=== PATIENT | female | born 1970 | race Two or more races ===

== ENCOUNTER 2019-10-13 12:41 | Emergency (ER) | payer BC ==
[~2019-10-13] VITALS: Ht 165.1 cm; Wt 57.2 kg
[2019-10-13] MEDS ORDERED: SYNTHROID88 MCG ORAL (12:55)
[2019-10-13 12:58] VITALS: BP 116/72
--- NOTE | 2019-10-13 13:05 | NUR ---
ED Nurse Note: Patient walked into ER from home c/o right upper abdominal pain radiates to her back on the right side X 2 days. Patient reports BM this morning, denies diarrhea or vomiting, but admits to nausea. Patient reports Dr. Thompson referred patient to ED for evaluation. Patient presented calm, AAO x4, VSS at this time.
--- NOTE | 2019-10-13 13:26 | Emergency Room Report ---
History of Present Illness General Chief Complaint: Abdominal Pain Source: Patient Present Illness HPI Disclaimer: Please note that this report is being documented using [employer] technology. This can lead to erroneous entry secondary to incorrect interpretation by the dictating instrument. HPI: 41-year-old female with history of gallstones and hypothyroidism presents for evaluation of abdominal pain. Symptoms began 2 days ago. She notes epigastric right upper quadrant pain rating to the back after eating some nuts 2 days ago. Denies vomiting but report significant nausea. Denies diarrhea. She was told she had gallstones in the past but were treated nonoperatively. Otherwise denies fever, chills, chest pain, shortness of breath, URI symptoms, rash or skin breakdown. Has not taken any medication prior to arrival. Patient is postmenopausal. Denies dysuria, hematuria. PMH: Hypothyroidism, history of gallstones PSH: Denies Allergies: Denies Social Hx: Denies alcohol, tobacco or drug use Allergies: Coded Allergies: No Known Allergies (Unverified , 10/13/19) COVID-19 Screening Contact w/high risk pt: No Experienced COVID-19 symptoms?: No COVID-19 Testing performed MANAGER ANALYSIS: Yes COVID-19 Screening: Negative COVID-19 COVID-19 Testing Source: nose Patient History Last Menstrual Period: menopause Now: No Nursing Documentation-PMH Past Medical History: No History, Except For Review of Systems All Other Systems: negative except mentioned in HPI Physical Exam Vital Signs Date Time Temp Pulse Resp B/P (MAP) Pulse Ox O2 Delivery O2 Flow Rate FiO2 10/13/19 12:48 98.4 91 17 116/72 (87) 97 Room Air General: Awake and alert, no acute distress HEENT: NC/AT. EOMI. Cardiovascular: RRR. S1 and S2 normal. No murmur appreciated Resp: Normal work of breathing. No cough, wheezing or crackles appreciated Abdomen: Abdomen is soft, nondistended. Tenderness palpation in the periumbilical area, epigastrium and right upper quadrant with positive Toledo's sign. No tenderness in the right lower quadrant, no rebound. No masses appreciated. Skin: Intact. No abrasions, laceration or rash over the exposed skin MSK: Normal tone and bulk. Moving all extremities. No obvious deformity. Neuro: Awake and alert. Mentating appropriately. Medical Decision Making Diagnostic Impression: Primary Impression: Biliary colic Additional Impressions: Gallstones UTI (urinary tract infection) Vomiting ER Course 49-year-old female with a history of gallstones presents for evaluation 2 days worsening epigastric pain and nausea. Greatest concern for cholecystitis, choledocholithiasis however gastritis, gastroenteritis, pancreatitis, appendicitis, bowel obstruction, current also on differential. Will obtain IV access, provide antiemetics, pain medication, IV fluids, broad labs ordered. Patient be kept n.p.o. and sent for ultrasound of the abdomen. Will advance work-up as needed. 1430: Ultrasound shows gallstones but no evidence of acute cholecystitis. CBC, chemistry, liver function studies are within normal limits. Urinalysis concerning for acute urinary tract infection. Patient received Zofran in the ED and will be discharged on Keflex. She remains in pain but declined admission at this time stating that she wants to return to work. She has been told about her gallstones in the past but does not want surgical intervention at this time fearing she would miss work. I believe this is reasonable as long as her symptoms can be managed. She will receive additional IV fluids and pain medication and be reevaluated. If improved she may be discharged with outpatient follow-up otherwise can admit. 1500: Patient improved. She declined admission at this time stated she wants to follow-up on an outpatient basis with her PMD. She does not want surgical intervention or evaluation by a surgeon at this time though I did offer. She is well-appearing and stable for outpatient follow-up. We discussed reasons to return to the emergency department. She understands and agrees with this treatment plan. Laboratory Tests Test 10/13/19 13:31 White Blood Count 5.1 K/UL (4.8-10.8) Red Blood Count 4.52 M/UL (4.20-5.40) Hemoglobin 13.2 G/DL (12.0-16.0) Hematocrit 40.0 % (37.0-47.0) Mean Corpuscular Volume 89 FL (80-99) Mean Corpuscular Hemoglobin 29.2 PG (27.0-31.0) Mean Corpuscular Hemoglobin Concent 33.0 G/DL (32.0-36.0) Red Cell Distribution Width 11.9 % (11.6-14.8) Platelet Count 313 K/UL (150-450) Mean Platelet Volume 7.3 FL (6.5-10.1) Neutrophils (%) (Auto) 54.6 % (45.0-75.0) Lymphocytes (%) (Auto) 36.3 % (20.0-45.0) Monocytes (%) (Auto) 7.2 % (1.0-10.0) Eosinophils (%) (Auto) 0.6 % (0.0-3.0) Basophils (%) (Auto) 1.2 % (0.0-2.0) Urine Color Pale yellow Urine Appearance Clear Urine pH 8 (4.5-8.0) Urine Specific [place] 1.010 (1.005-1.035) Urine Protein Negative (NEGATIVE) Urine Glucose (UA) Negative (NEGATIVE) Urine Ketones Negative (NEGATIVE) Urine Blood Negative (NEGATIVE) Urine Nitrite Negative (NEGATIVE) Urine Bilirubin Negative (NEGATIVE) Urine Urobilinogen Normal MG/DL (0.0-1.0) Urine Leukocyte Esterase 3+ (NEGATIVE) H Urine RBC 0-2 /HPF (0 - 2) Urine WBC 5-10 /HPF (0 - 2) H Urine Squamous Epithelial Cells Few /LPF (NONE/OCC) Urine Amorphous Sediment Moderate /LPF (NONE) H Urine Bacteria Few /HPF (NONE) Sodium Level 143 MMOL/L (136-145) Potassium Level 3.6 MMOL/L (3.5-5.1) Chloride Level 104 MMOL/L (98-107) Carbon Dioxide Level 30 MMOL/L (21-32) Anion Gap 10 mmol/L (5-15) Blood Urea Nitrogen 14 mg/dL (7-18) Creatinine 1.0 MG/DL (0.55-1.30) Estimated Glomerular Filtration Rate 58.9 mL/min (>60) Glucose Level 100 MG/DL (74-106) Calcium Level 8.9 MG/DL (8.5-10.1) Total Bilirubin 0.4 MG/DL (0.2-1.0) Aspartate Amino Transferase (AST) 25 U/L (15-37) Alanine Aminotransferase (ALT) 29 U/L (12-78) Alkaline Phosphatase 89 U/L (46-116) Total Protein 7.5 G/DL (6.4-8.2) Albumin 4.1 G/DL (3.4-5.0) Globulin 3.4 g/dL Albumin/Globulin Ratio 1.2 (1.0-2.7) Lipase 326 U/L (73-393) CT/MRI/US Diagnostic Results CT/MRI/US Diagnostic Results : Impression Procedure: US ABD Complete Indication: Abdominal pain Technique: Monge-scale and duplex images of the upper abdomen were obtained Comparison: none Findings: Gallbladder demonstrates gallstones. No gallbladder wall thickening nor pericholecystic fluid Sonographic Toledo's sign is is equivocal. Common bile duct measures for mm in diameter. No intrahepatic biliary ductal dilatation. Liver demonstrates normal echogenicity, no focal abnormality. Portal vein and hepatic veins are patent. Pancreas is unremarkable. Spleen is unremarkable. Left kidney measures 9.6 cm in length. Right kidney measures 10.3 cm length. Both kidneys demonstrate normal echogenicity. There is no hydronephrosis. No focal abnormality . Non-aneurysmal abdominal aorta . Impression: Cholelithiasis. Negative for dilated bile ducts. Equivocal sonographic Toledo's sign is nonspecific. Hepatobiliary nuclear scan may be useful if there is high clinical suspicion for acute cholecystitis No other significant abnormality Dictated By: Cash Gregory MD Electronically Signed By: Cash Gregory MD Signed Date/Time 10/13/19 1422 CC: Joseluis Mcguire MD Last Vital Signs Date Time Temp Pulse Resp B/P (MAP) Pulse Ox O2 Delivery O2 Flow Rate FiO2 10/13/19 12:58 91 17 Room Air 10/13/19 12:58 98.4 116/72 97 Disposition: HOME, SELF-CARE Condition: Stable Scripts Hydrocodone Bit/Acetaminophen 5-325* (NORCO 5-325 TABLET*) 1 Each Tablet 1 TAB ORAL Q6H PRN for FOR PAIN, #10 TAB 0 Refills Prov: Joseluis Mcguire MD 10/13/19 Cephalexin* (KEFLEX*) 500 Mg Capsule 500 MG ORAL EVERY 12 HOURS for 7 Days, #14 CAP 0 Refills Prov: Joseluis Mcguire MD 10/13/19 Ondansetron Odt* (ZOFRAN ODT*) 4 Mg Tab.rapdis 4 MG BC EVERY 6 HOURS PRN for Nausea & Vomiting, #20 TAB 0 Refills Prov: Joseluis Mcguire MD 10/13/19 Joseluis Mcguire MD Oct 13, 2019 13:26
[2019-10-13] MEDS ORDERED: Ketorolac 30mg Inj IV ONE (13:30)
--- NOTE | 2019-10-13 13:30 | NUR ---
ED Nurse Note: IV access established on right AC 20ga, blood and urine specimen sent down
--- NOTE | 2019-10-13 13:44 | NUR ---
ED Nurse Note: US at bed side
[2019-10-13] MEDS ORDERED: ONDANSETRON ODT4 MG BC (13:50)
[2019-10-13 13:51] LABS: APPEARANCE,URINE CLEAR; BILIRUBIN, URINE NEGATIVE (NEGATIVE); COLOR,URINE PALE YELLOW; GLUCOSE, URINE (UA) NEGATIVE (NEGATIVE); KETONES,URINE NEGATIVE (NEGATIVE); LEUKOCYTE ESTERASE ,URINE 3+ (NEGATIVE); NITRITE,URINE NEGATIVE (NEGATIVE); PH,URINE 8 (4.5-8.0); PROTEIN,URINE NEGATIVE (NEGATIVE); UROBILINOGEN,URINE NORMAL MG/DL (0.0-1.0)
[2019-10-13 13:54] LABS: BASOPHILS % (AUTO) 1.2 % (0.0-2.0); EOSINOPHILS % (AUTO) 0.6 % (0.0-3.0); HEMOGLOBIN 13.2 G/DL (12.0-16.0); LYMPHOCYTES % (AUTO) 36.3 % (20.0-45.0); MEAN CORPUSCULAR VOLUME 89 FL (80-99); MONOCYTES % (AUTO) 7.2 % (1.0-10.0); NEUTROPHILS % (AUTO) 54.6 % (45.0-75.0); PLATELET COUNT 313 K/UL (150-450); RED BLOOD COUNT 4.52 M/UL (4.20-5.40); RED CELL DISTRIBUTION WIDTH 11.9 % (11.6-14.8); WHITE BLOOD COUNT 5.1 K/UL (4.8-10.8)
--- NOTE | 2019-10-13 13:56 | NUR ---
Note yazan in EDM - 10/13/19 at 1358 by JOSE RAMON ED Nurse Note: Pt accidentally wasted urine and did not provide sample. Pt still vomiting bright yellow/orange vomit. Made ED MD aware of both. Pt's IV not flushing. Right forearm 20 g inserted and second bag of NS hung
[2019-10-13 14:05] LABS: ANION GAP 10 mmol/L (5-15); BLOOD UREA NITROGEN 14 mg/dL (7-18); CALCIUM 8.9 MG/DL (8.5-10.1); CARBON DIOXIDE 30 MMOL/L (21-32); CHLORIDE 104 MMOL/L (98-107); POTASSIUM 3.6 MMOL/L (3.5-5.1); SODIUM 143 MMOL/L (136-145)
[2019-10-13 14:11] LABS: ALANINE AMINOTRANSFERASE 29 U/L (12-78); ALBUMIN 4.1 G/DL (3.4-5.0); ALBUMIN/GLOBULIN RATIO 1.2 (1.0-2.7); ALKALINE PHOSPHATASE 89 U/L (46-116); ASPARTATE AMINO TRANSFERASE 25 U/L (15-37); BILIRUBIN,TOTAL 0.4 MG/DL (0.2-1.0)
[2019-10-13] MEDS ORDERED: Morphine Sulfate 2mg/ml Inj(IV/IM USE ONLY) IVP ONE (14:15)
[2019-10-13] MEDS ORDERED: CEPHALEXIN500 MG ORAL (14:22)
--- NOTE | 2019-10-13 14:27 | Diagnostic Imaging Report ---
Indication: Abdominal pain Technique: Monge-scale and duplex images of the upper abdomen were obtained Comparison: none Findings: Gallbladder demonstrates gallstones. No gallbladder wall thickening nor pericholecystic fluid Sonographic Toledo's sign is is equivocal. Common bile duct measures for mm in diameter. No intrahepatic biliary ductal dilatation. Liver demonstrates normal echogenicity, no focal abnormality. Portal vein and hepatic veins are patent. Pancreas is unremarkable. Spleen is unremarkable. Left kidney measures 9.6 cm in length. Right kidney measures 10.3 cm length. Both kidneys demonstrate normal echogenicity. There is no hydronephrosis. No focal abnormality . Non-aneurysmal abdominal aorta . Impression: Cholelithiasis. Negative for dilated bile ducts. Equivocal sonographic Toledo's sign is nonspecific. Hepatobiliary nuclear scan may be useful if there is high clinical suspicion for acute cholecystitis No other significant abnormality
[2019-10-13] MEDS ORDERED: NORCO 5-325 TA1 EAC1 ORAL (14:56)
[2019-10-13 15:18] VITALS: BP 116/72
--- NOTE | 2019-10-13 15:19 | NUR ---
ER DISCHARGE NOTE: Patient is cleared to be discharged per ERMD, pt is aox4, on room air, with stable vital signs. pt was given dc and prescription instructions, pt was able to verbalize understanding, pt id band and iv site removed without complications. pt is able to ambulate with steady gait. pt took all belongings.
== END 2019-10-13 15:20 | disposition home or self-care (01) ==
LOC: EMR 13:20
DX: K80.70 Calculus of gallbladder and bile duct without cholecystitis without obstruction (principal); N39.0 Urinary tract infection, site not specified; R11.10 Vomiting, unspecified; E03.9 Hypothyroidism, unspecified
CPT/HCPCS: 36415; 76700; 80053; 81003; 83690; 85025; 96361; 96372; 96374; 99284; J1885; J2405; J7030

== ENCOUNTER → 2019-12-04 | Day surgery (SDC) | payer BC ==
[2019-12-04] VITALS (9 sets, daily range): BP systolic 109–129; BP diastolic 53–70
[~2019-12-04] VITALS: Ht 162.6 cm; Wt 55.8 kg
[~2019-12-04] MED LIST: Atropine Inj 1mg/10ml Syr IV PRN; CEPHALEXIN500 MG ORAL; DiphenhydrAMINE 50mg/ml Inj IVP PRN; IBUPROFEN600 M1 ORAL; LR 1000ml 1,000 ML IVLG SCH; LR 1000ml ONE; Lidocaine 1% MPF 10mg/ml 5ml ONE; Midazolam 2mg/2ml Inj IVP PRN; NORCO 5-325 TA1 EAC1 ORAL; ONDANSETRON ODT4 MG BC; SYNTHROID88 MCG ORAL; fentaNYL 100 mcg/2 mL IV PRN
--- NOTE | 2019-12-04 06:34 | Anethesia Preoperative Eval ---
Anesthesia Pre-op PMH/ROS General Date of Evaluation: Dec 04, 2019 Time of Evaluation: 06:30 Anesthesiologist: saida ASA Score: ASA 3 Mallampati Score Class I : Soft palate, uvula, fauces, pillars visible Class II: Soft palate, uvula, fauces visible Class III: Soft palate, base of uvula visible Class IV: Only hard plate visible Mallampati Classification: Class II Surgeon: callie Diagnosis: gerd, abdominal pain Surgical Procedure: colonoscopy, egd Anesthesia History: none Social History: smoking - nonsmoker Family History: no anesthesia problems Allergies: Coded Allergies: No Known Allergies (Unverified , 12/04/19) Medications: see eMAR Patient NPO?: Yes Past Medical History Gastrointestinal/Genitourinary: Reports: GERD, other - biliary colic, uti, vomiting, gallstones, denies , hemorrhoids Neurologic/Psychiatric: Reports: depression/anxiety Endocrine: Reports: hypothyroidism Hematology/Immune: Reports: other - covid-19 negative 12/01/2019, mumps PSxH Narrative: tonsillectomy Anesthesia Pre-op Phys. Exam Physician Exam Last Vital Signs Date Time Temp Pulse Resp B/P (MAP) Pulse Ox O2 Delivery O2 Flow Rate FiO2 12/04/19 07:17 97.3 54 18 109/70 99 Room Air Constitutional: NAD Neurologic: CN 2-12 intact Cardiovascular: RRR Respiratory: CTA Gastrointestinal: S/NT/ND Airway Exam Mallampati Score: Class II MO: limited Neck: flexible TMD: 2fb ROM: limited Anesthesia Pre-op A/P Labs Microbiology Date/Time Source Procedure Growth Status 12/01/19 09:55 Nasopharynx SARS-CoV-2 RdRp Gene Assay - Final Complete Risk Assessment & Plan Assessment: asa3 Plan: mac Status Change Before Surgery: No Pre-Antibiotics Drug: July Goodson MD Dec 04, 2019 06:34
--- NOTE | 2019-12-04 08:02 | Short Stay Surgery H&P ---
History of Present Illness History of Present Illness Chief Complaint see H&P attached HPI Tyra Kwan is a 49 year old female who was admitted on for Gerd And Adominal Pain Patient History Allergies: Coded Allergies: No Known Allergies (Unverified , 12/04/19) Medication History Scheduled Ibuprofen* (Motrin*), 800 MG ORAL FOUR TIMES A DAY, (Reported) Levothyroxine Sodium* (Synthroid*), 88 MCG ORAL DAILY, (Reported) Discontinued Medications Cephalexin* (Keflex*), 500 MG ORAL EVERY 12 HOURS Discontinued Reason: Pt stopped taking med Hydrocodone Bit/Acetaminophen 5-325* (Timber 5-325 Tablet*), 1 TAB ORAL Q6H PRN for FOR PAIN Discontinued Reason: Pt stopped taking med Ondansetron Odt* (Zofran Odt*), 4 MG BC EVERY 6 HOURS PRN for Nausea & Vomiting Discontinued Reason: Pt stopped taking med Physical Exam Vital Signs Last Vital Signs Date Time Temp Pulse Resp B/P (MAP) Pulse Ox O2 Delivery O2 Flow Rate FiO2 12/04/19 07:17 97.3 54 18 109/70 99 Room Air Plan Attestation Are the patient's medical conditions optimized for surgery? Kathe Malhotra MD Dec 04, 2019 08:02
--- NOTE | 2019-12-04 08:03 | Pre-Procedure Note/Attestation ---
Pre-Procedure Note/Attestation Complete Prior to Procedure Planned Procedure: not applicable Procedure Narrative: egd Indications for Procedure Pre-Operative Diagnosis: Abd pain, FH of gastric CA, GERD Attestation I attest that I discussed the nature of the procedure; its benefits; risks and complications; and alternatives (and the risks and benefits of such alternatives ), prior to the procedure, with the patient (or the patient's legal investment representative). I attest that, if there was a reasonable possibility of needing a blood transfusion, the patient (or the patient's legal investment representative) was given the [facility] standardized written summary, pursuant to the [place] Blood Safety Act ([place] Health and Safety Code # 1645, as amended). I attest that I re-evaluated the patient just prior to the surgery and that there has been no change in the patient's H&P, except as documented below: Kathe Malhotra MD Dec 04, 2019 08:03
--- NOTE | 2019-12-04 08:14 | Pre-Procedure Note/Attestation ---
Pre-Procedure Note/Attestation Complete Prior to Procedure Planned Procedure: not applicable Procedure Narrative: EGD and Colonoscopy Indications for Procedure Pre-Operative Diagnosis: EGD for Abd pain, FH of gastric CA, GERD Colonoscopy for RLQ TTP Attestation I attest that I discussed the nature of the procedure; its benefits; risks and complications; and alternatives (and the risks and benefits of such alternatives ), prior to the procedure, with the patient (or the patient's legal automotive sales representative). I attest that, if there was a reasonable possibility of needing a blood transfusion, the patient (or the patient's legal automotive sales representative) was given the [facility] standardized written summary, pursuant to the [place] Blood Safety Act ([place] Health and Safety Code # 1645, as amended). I attest that I re-evaluated the patient just prior to the surgery and that there has been no change in the patient's H&P, except as documented below: Kathe Malhotra MD Dec 04, 2019 08:14
--- NOTE | 2019-12-04 12:25 | Immediate Post-Op Evaluation ---
Immediate Post-Op Evalulation Immediate Post-Op Evalulation Procedure: egd/colonoscopy w/ bx Date of Evaluation: Dec 04, 2019 Time of Evaluation: 09:17 IV Fluids: 650ml lr Blood Products: none Estimated Blood Loss: negligible Blood Pressure Systolic: 109 Blood Pressure Diastolic: 54 Pulse Rate: 52 Respiratory Rate: 18 O2 Sat by Pulse Oximetry: 99 Temperature (Fahrenheit): 97.0 Pain Score (1-10): 0 Nausea: No Vomiting: No Complications none Patient Status: awake, reacts, patent Hydration Status: adequate Drug: July Goodson MD Dec 04, 2019 12:25
--- NOTE | 2019-12-04 12:27 | 48 Hour Post Anesthesia Eval ---
Post Anesthesia Evaluation Procedure: egd/colonoscopy w/ bx Date of Evaluation: Dec 04, 2019 Time of Evaluation: 09:19 Blood Pressure Systolic: 119 0: 57 Pulse Rate: 60 Respiratory Rate: 18 Temperature (Fahrenheit): 97.0 O2 Sat by Pulse Oximetry: 100 Airway: patent Nausea: No Vomiting: No Pain Intensity: 0 Hydration Status: adequate Cardiopulmonary Status: stable Mental Status/LOC: patient returned to baseline Post-Anesthesia Complications: none Follow-up care needed: N/A July Barfield MD Dec 04, 2019 12:27
--- NOTE | 2019-12-04 12:30 | Procedure Note ---
DATE OF PROCEDURE: 12/04/2019 GASTROENTEROLOGY PROCEDURE REPORT PROCEDURE: Upper gastrointestinal endoscopy with biopsy as well as colonoscopy with biopsy. SURGEON: Kathe Malhotra MD. ANESTHESIOLOGIST: Dr. Hoyos PRE-ENDOSCOPIC DIAGNOSES: 1. Right-sided abdominal pain including the right upper quadrant and right lower quadrant. 2. Family history of gastric cancer. 3. Symptoms of gastroesophageal reflux. DESCRIPTION OF PROCEDURE: The procedure, its risks, indications, alternatives, and possible complications have been explained to the patient and informed consent was obtained. The patient was then sedated in the left lateral decubitus position and a diagnostic upper endoscope was introduced through oropharynx and advanced to the duodenum without difficulty. The endoscope was then gradually withdrawn and the mucosa examined carefully. Examination of the upper gastrointestinal mucosa revealed erosive antrum gastritis. Biopsies of the proximal stomach and distal stomach were sent to pathology in the different bowls. Random biopsies of the duodenum and mid esophagus were also sent to pathology for review. The endoscope was removed. The rectal exam was done. The colonoscope was introduced into the rectum and advanced to 15 cm into the terminal ileum. The colonoscope was then gradually withdrawn. The mucosa examined carefully. Examination of the colonic mucosa as well as the terminal ileal mucosa did not reveal any abnormalities. Random biopsies of the terminal ileum and the right colon were sent to pathology for review. The retroflexed view the rectum was unremarkable. The colonoscope was removed. The patient was sent to recovery in good condition. COMPLICATIONS: None. ASSESSMENT: This examination was notable for erosive gastritis, which should be evaluated further on biopsy results. Helicobacter pylori should be treated if found on these biopsies. Given family history of her gastric cancer in multiple individuals, the gastric lining will also be evaluated for any evidence of dysplasia. Biopsies of the terminal ileum and the right colon will be evaluated to rule out inflammatory changes such as terminal ileitis or microscopic colitis. The upper endoscopy biopsies from the duodenum and the esophagus will also be evaluated for microscopic evidence of disease including the eosinophilic esophagitis. RECOMMENDATIONS: 1. Followup biopsy results. 2. Resume oral diet. 3. Outpatient followup. 4. The patient to undergo HIDA scanning to evaluate the gallbladder as an outpatient. Kathe Malhotra M.D. DR: Maricruz JOB#: [id number] CC: Brennen Thompson MD.; Fax#: [phone] KATHE MALHOTRA MD. ; FAX#: [phone]
--- NOTE | 2019-12-05 21:13 | Endoscopy Procedure Note ---
Endoscopy Procedure Note General Indication for Procedure: abd pain, FH Procedures Performed: EGD, colonoscopy Specimen: yes Anesthesia Anesthesiologist: Mikey Doll Anesthesia: MAC Inserted Devices Implant(s) used?: No GI Core Measures 50 yrs or older w/o bx or poly: Not Applicable 10yrs. F/U recommended: Not Applicable Kathe Malhotra MD Dec 05, 2019 21:13
--- NOTE | 2019-12-05 21:14 | Brief Operative Note ---
Immediate Post Operative Note Operative Note Chief Complaint: abd pain, FH Pre-op Diagnosis: EGD for Abd pain, FH of gastric CA, GERD Colonoscopy for RLQ TTP Procedure: esophagogastroduodenoscopy colon Post-op Diagnosis: erosive gastritis Specimen: yes Complications: none Fluids: per anesthesia Implant(s) used?: No Kathe Malhotra MD Dec 05, 2019 21:14
== END | disposition home or self-care (01) ==
LOC: GAS 06:44
DX: R10.11 Right upper quadrant pain (principal); K21.9 Gastro-esophageal reflux disease without esophagitis; K29.50 Unspecified chronic gastritis without bleeding; K29.80 Duodenitis without bleeding; E03.9 Hypothyroidism, unspecified; F32.9 Major depressive disorder, single episode, unspecified; F41.9 Anxiety disorder, unspecified
CPT/HCPCS: 43239; 45380; 94003; J2704; J7120; U0002; 94150

== ENCOUNTER → 2019-12-18 | Outpatient (CLI) | payer BC ==
[~2019-12-18] MED LIST changes: -Atropine Inj 1mg/10ml Syr IV PRN; -DiphenhydrAMINE 50mg/ml Inj IVP PRN; -LR 1000ml 1,000 ML IVLG SCH; -LR 1000ml ONE; -Lidocaine 1% MPF 10mg/ml 5ml ONE; -Midazolam 2mg/2ml Inj IVP PRN; -fentaNYL 100 mcg/2 mL IV PRN
--- NOTE | 2019-12-18 14:54 | Diagnostic Imaging Report ---
Indication: Abdominal Pain Technique: 6.1 mCi of technetium 99 m-Choletec was injected intravenously. Planar imaging of the abdomen was then performed at three-minute intervals up to 60 minutes. At 65 minutes 1.1 ug of KINEVAC(Sincalide) was administered followed by 30 minutes of dynamic imaging, from which gallbladder ejection fraction was calculated. Findings: There is prompt uptake within the liver with good washout of radiotracer from the liver on subsequent imaging. There is excretion into the biliary ducts. There is passage of radiotracer into the gallbladder and small bowel indicating patency of the cystic and common bile ducts, respectively. Imaging following Sincalide/CCK administration demonstrates decreased gallbladder ejection fraction, with the calculated ejection fraction of 6%. IMPRESSION: Decreased gallbladder ejection fraction suggesting impaired gallbladder emptying/gallbladder dysfunction.
== END | disposition home or self-care (01) ==
LOC: NUM 08:59
DX: R10.11 Right upper quadrant pain (principal)
CPT/HCPCS: 78266; A4641